=== PATIENT | female | born 1955 | race Caucasian/White ===

== ENCOUNTER 2024-02-17 11:41 | Emergency (ER) | payer OTHER ==
[~2024-02-17] VITALS: Ht 149.9 cm; Wt 39.8 kg
[~2024-02-17 11:41] MED LIST: CLON-527 PO; DOCU-28 PO; FAMO-128 PO; GABA-532 PO; GABA300C PO; HYDR-4353 PO; QUET-1 PO; REM30T PO
[2024-02-17 12:03] VITALS: BP 163/97; PULSE 117; RESP 18; TEMP 97.8; O2SAT 94
== END 2024-02-17 22:14 | disposition home or self-care (01) ==
LOC: ER 11:42
DX: S60.212A Contusion of left wrist, initial encounter (principal); Y08.89XA Assault by other specified means, initial encounter; Y93.89 Activity, other specified; Y92.89 Other specified places as the place of occurrence of the external cause; Y99.8 Other external cause status
CPT/HCPCS: 73130; 99283

== ENCOUNTER 2024-02-21 19:55 | Emergency (ER) | payer MEDICARE, MEDICAID ==
[~2024-02-21] VITALS: Ht 152.4 cm; Wt 45.0 kg
[2024-02-21] MEDS: LORazepam 1 MG tablet PO ONE (20:15)
[2024-02-21 20:22] VITALS: BP 162/84; PULSE 79; RESP 20; TEMP 98.6; O2SAT 96
== END 2024-02-21 21:12 | disposition home or self-care (01) ==
LOC: ER 19:55
DX: R07.89 Other chest pain (principal); F41.9 Anxiety disorder, unspecified; Z88.0 Allergy status to penicillin; Z88.6 Allergy status to analgesic agent; Z88.8 Allergy status to other drugs, medicaments and biological substances; Z79.899 Other long term (current) drug therapy
CPT/HCPCS: 99283